=== PATIENT | male | born 1970 | race Caucasian/White ===

== ENCOUNTER 2022-06-29 14:51 | Outpatient (CLI) | payer OTHER, SELFPAY ==
--- NOTE | 2022-06-29 15:30 | MR_ITS ---
[address] [address] Phone:?[phone] Fax:?[phone] Referring Physician Information: Jame Ware D.P.M. [address] [facility] [address] Phone:?[phone] Fax:?[phone] Patient:Lenora Joseph D.O.B:?1970 Sex:?Male Phone:?[phone] [facility] MRN:?[id number] Exam Date:?06/29/2022 ? EXAM: MRI of the RIGHT FOOT, including forefoot and midfoot, without contrast CLINICAL INFORMATION: Male, 52 years old, with foot pain INDICATION: Narayanan's neuroma/swelling. PRIOR SURGERY: None reported. PLAIN FILMS: None available. COMPARISONS: No prior MRIs available. TECHNICAL INFORMATION: Using a 1.5T MR scanner and a localizing surface coil: sagittals: PD, T2 axials (long-axis): PD, T2, STIR coronals (short-axis): T1, STIR SEDATION: None CONTRAST: None FINDINGS: Osseous structures: Forefoot: No fracture, stress injury or marrow edema/pathology. Midfoot: No fracture, stress injury or marrow edema/pathology. Tarsal coalition: No calcaneonavicular or cubonavicular coalition. Joints: IP: No arthropathy or pathologic effusion. MTP: No arthropathy or pathologic effusion. TMT: No arthropathy or pathologic effusion. Tarsal: No arthropathy or pathologic effusion. Lisfranc joint ligamentous complex: Lisfranc ligament complex: Dorsal, interosseous and plantar ligaments are intact, without sprain or disruption. TMT/intermetatarsal ligaments: Intact without sprain/disruption. Myotendinous structures: Flexor tendons: Intact, without tendinopathy, tear, or tenosynovitis. Extensor tendons: Intact, without tendinopathy, tear, or tenosynovitis. Plantar aponeurosis: Normal, without ongoing fasciopathy, tear or mass, although its proximal aspect at calcaneus is not included. Intrinsic musculature: Normal in bulk and attenuation. Soft tissues: Region of intermediate signal soft tissue between the second and third metatarsal heads measuring 1.4 x 0.5 x 1.8 cm (coronal series 4 image 18, and axial series 7 image 15). Mild intermetatarsal bursitis between the third and fourth metatarsal heads (axial series 8 image 14). No soft tissue masses or ganglion cysts. Region of intermediate soft tissue along the plantar aspect of the fifth metatarsal head with peripheral STIR hyperintensity (coronal series 4 & 5 image 23) IMPRESSION: 1. Region of soft tissue between the second and third metatarsal heads suggestive for perineural fibrosis (Narayanan's neuroma). 2. No stress/occult fracture or other marrow edema/pathology. 3. Mild intermetatarsal bursitis between the third and fourth metatarsal heads. 4. Soft tissue pressure lesion with pseudobursa along the plantar 5th metatarsal head. KME Electronically signed on 06/30/2022 10:45:00 AM by Kamla Richardson M.D.
== END 2022-06-29 14:52 | disposition home or self-care (01) ==
LOC: MRI 14:51
PROVIDERS: PCP Internal Medicine; Visit Provider Podiatrist
DX: M79.671 Pain in right foot (principal); M77.51 Other enthesopathy of right foot and ankle; G57.61 Lesion of plantar nerve, right lower limb; M77.8 Other enthesopathies, not elsewhere classified
CPT/HCPCS: 73718

== ENCOUNTER 2022-09-05 08:43 | Day surgery (SDC) | payer OTHER, SELFPAY ==
[2022-09-05] MEDS: LACTATED RINGERS 1000 ML 1,000 ML 100 ML IV (09:00)
[2022-09-05 09:03] VITALS: BMI 37.3
[2022-09-05 09:12] VITALS: BP 147/90; PULSE 89; RESP 20; TEMP 36.9; O2SAT 95
[2022-09-05] MEDS: ETHYL CHLORIDE 1 APPLICATION 1 APPLIC TOPICAL (09:29)
[2022-09-05] MEDS: SODIUM CHLORIDE 0.9 % (FLUSH) 10 ML SYRINGE IVF (09:29)
[2022-09-05] MEDS: CEFAZOLIN 2 GM INJ IVP (10:23)
[2022-09-05] MEDS: BUPIVACAINE 0.5% 30 ML INJECTION (10:30)
[2022-09-05 11:30] VITALS: BP 133/95; PULSE 93; RESP 16; TEMP 36.7; O2SAT 99
--- NOTE | 2022-09-05 11:32 | W.ANESCHARGE ---
Anesthesia Charges Start Date/Time Anesthesia Start Date: 09/05/22 Anesthesia Start Time: 10:18 Stop Date/Time Anesthesia Stop Date: 09/05/22 Anesthesia Stop Time: 11:29 Summary Emergency: No
[2022-09-05 11:46] VITALS: BP 126/64; PULSE 89; RESP 20; TEMP 36.9; O2SAT 95
[2022-09-05 12:00] VITALS: BP 116/86; PULSE 85; RESP 20; O2SAT 96
--- NOTE | 2022-09-05 12:05 | W.ANESCHARGE ---
Anesthesia Charges Start Date/Time Anesthesia Start Date: 09/05/22 Anesthesia Start Time: 10:18 Stop Date/Time Anesthesia Stop Date: 09/05/22 Anesthesia Stop Time: 11:29 Summary Emergency: No
[2022-09-05 12:30] VITALS: BP 130/92; PULSE 86; RESP 20; TEMP 36.7; O2SAT 96
--- NOTE | 2022-09-05 16:13 | PM.GSPRC ---
Operative Note Date of procedure: 09/05/22 Type of Procedure: 1. Excision of neuroma 2nd intermetatarsal space right foot 2. Excision of Neuroma 3rd intermetatarsal space right foot Procedure Description: After discussing the risks and benefits of the procedure, the patient signed informed consent.? The operative site was marked and the patient was brought to the operating room and placed on the operating table in supine position.? Care was taken to pad the patient's pressure points.?? The patient was then given sedation by anesthesia.?? The operative site was then prepped and draped in the usual sterile fashion.? A time-out was then performed. The right leg was exsanguinated the ankle tourniquet inflated to 250 mm Hg. Linear incisions made over the 2nd intermetatarsal space right foot. Incision was carried down through skin subcutaneous tissues. Blunt dissection was carried down to the deep transverse metatarsal ligament. The this plantar, nerve was identified and was significantly abnormal and enlarged. The deep transverse metatarsal ligament was released. The distal medial and lateral arms of the nerve were transected and the nerve was dissected proximally into the intrinsic musculature. The nerve was then transected proximal to the metatarsal heads and within the intrinsic muscles. Second linear incisions made over the 3rd intermetatarsal space right foot. Incision was carried down through skin subcutaneous tissues. Blunt dissection was carried down to the deep transverse metatarsal ligament. The plantar nerve was identified and was also significantly abnormal enlarged. It was not amendable to decompression. The deep transverse metatarsal ligament was transected. The distal medial and lateral arms of the nerve were transected and the nerve was dissected proximally into the intrinsic musculature. The nerve was then transected proximal to the metatarsal heads and within the intrinsic muscles. The tourniquet was released and all bleeding vessels cauterized. Both incisions were irrigated fully with normal sterile saline. Subcutaneous tissues reapproximated with 4-0 Monocryl and skin closed with 4-0 Prolene. Sterile dressings were then applied. Tourniquet was released and normal capillary fill time returned to all digits. ? The patient was then woken and transported to the recovery area in stable condition. The patient tolerated the procedure well. Written and verbal postop instructions given. He is weight-bearing as tolerated. Is given hydrocodone for pain. His follow-up appointment in 2-3 days. Findings: Abnormal common plantar nerve in both the 2nd and 3rd intermetatarsal space. Complications: None apparent Anesthesia: MAC and local Surgeon: Jame Ware DPM Estimated blood loss (mL): 2 Condition: stable Disposition: same day
== END 2022-09-05 12:42 | disposition home or self-care (01) ==
PROVIDERS: PCP Internal Medicine; Visit Provider Podiatrist
PROC: (CPT 28080; principal; 2022-09-05 10:00)
DX: G57.61 Lesion of plantar nerve, right lower limb (principal)
CPT/HCPCS: 28080 ×2; 01480; 88305; 88342; J0690; J2250; J2704; J3010; J3490; J7120

== ENCOUNTER 2022-10-05 14:13 | Outpatient (CLI) | payer OTHER, SELFPAY | END 2022-10-05 14:14 | disposition home or self-care (01) | LOC: AMB 19:07 | PROVIDERS: PCP Internal Medicine; Visit Provider Emergency Medicine Emergency Medical Services | DX: I49.9 Cardiac arrhythmia, unspecified (principal); R42 Dizziness and giddiness; R20.0 Anesthesia of skin | CPT/HCPCS: A0425; A0427 ==

== ENCOUNTER 2022-10-05 14:51 | Emergency (ER) | payer OTHER, SELFPAY ==
[2022-10-05 14:55] VITALS: BP 116/78; PULSE 219; RESP 20; TEMP 35.8; O2SAT 95; BMI 36.3
[2022-10-05 15:01] VITALS: BP 116/78; PULSE 222; O2SAT 95
[2022-10-05 15:02] VITALS: PULSE 217; O2SAT 94
[2022-10-05] MEDS: ADENOSINE 6 MG/2ML INJ IVP (15:08)
[2022-10-05] MEDS: ADENOSINE 6 MG/2ML INJ 12 MG IVP (15:10)
--- NOTE | 2022-10-05 15:13 | ED.NURSE ---
pt received 6 mg adenosine with no results, 12 mg adenosine given and hr decreased to 120-130's. dr. zambrano in with pt. pt tolerated well, talking and texting during it.
[2022-10-05 15:15] VITALS: PULSE 129; O2SAT 92
[2022-10-05 15:16] VITALS: BP 134/96; PULSE 127; O2SAT 92
[2022-10-05] MEDS: 0.9 % SODIUM CHLORIDE 1000 ml 1,000 ML IV (15:20)
--- NOTE | 2022-10-05 15:25 | ED.ARRPALP ---
HPI - Arrhythmia/Palpitations General Chief Complaint: Arrhythmia/Palpitations Stated Complaint: Cardiac Time Seen by Provider: 10/05/22 14:54 History of Present Illness HPI narrative: This 52-year-old male comes in by ambulance because of a rapid heart rate. He states that this started an hour or 2 prior to arrival here. He was noted to have a heart rate at around 220 beats per minute by ambulance personnel. His blood pressure is in normal range. The patient states that he does not have any particular symptoms of nausea, vomiting, lightheadedness, shortness of breath, or chest pain. He states that he has had a rapid rhythm somewhat similar to this twice in the distant past. He does take metoprolol 100 mg extended release. Related Data Home Medications Medication Instructions Recorded Confirmed albuterol sulfate 90 mcg/actuation 2 inhalation PRN 04/13/22 08/31/22 aerosol inhaler aspirin 81 mg tablet,delayed 81 mg PO QDAY 04/13/22 10/05/22 release cholecalciferol (vitamin D3) 25 25 mcg PO QDAY 04/13/22 09/05/22 mcg (1,000 unit) capsule fluocinonide 0.05 % topical 1 topical .Daily as needed PRN 04/13/22 08/31/22 solution melatonin 3 mg capsule 3 mg PO .Bedtime as needed PRN 04/13/22 09/05/22 omega-3 fatty acids 500 mg capsule 500 mg PO QDAY 04/13/22 09/05/22 theanine 100 mg capsule 400 cap PO DAILY 04/13/22 09/05/22 Previous Rx's Medication Instructions Recorded gabapentin 100 mg capsule 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 PO BID PRN Oracio's Neuroma 04/13/22 #30 caps losartan 50 mg-hydrochlorothiazide 2 tab PO DAILY Hypertension #90 04/26/22 12.5 mg tablet tabs metoprolol succinate 100 mg 100 mg PO DAILY #90 tabs 04/27/22 tablet,extended release 24 hr lisdexamfetamine 40 mg capsule 40 mg PO QAM ADHD #30 caps 09/19/22 (Vyvanse) Allergies Allergy/AdvReac Type Severity Reaction Status Date / Time amlodipine Allergy Mild SWELLING Verified 08/31/22 15:13 latex Allergy Mild Rash Verified 08/31/22 15:13 lisinopril Allergy Mild Cough Verified 12/05/22 08:51 nifedipine Allergy Mild Swelling Verified 08/31/22 15:13 sesame oil Allergy Mild Vomiting Verified 08/31/22 15:13 Review of Systems Status of ROS: Reports: 10 or more systems reviewed and unremarkable except as noted in History and below Narrative: Constitutional: No fevers, no weight gain or loss. Eyes: No discharge. No vision changes. HENT: No congestion, no sore throat, no ear pain. Cardiovascular: No chest pain. Rapid heart rate. Respiratory: No shortness of breath, no wheezes, no cough. Gastrointestinal: No abdominal pain, no vomiting, no diarrhea. Genitourinary: No dysuria, no hematuria. Musculoskeletal: Normal range of motion. Skin: No rashes, no pruritis. Neurological: No dizziness, weakness, sensory change, speech change. Endo/Heme/Allergies: No bruising or bleeding. No polydipsia. Pysch: no suicidality, no anxiety, no insomnia. All other systems reviewed and are negative. [facility] Medical History (Updated 10/05/22 @ 17:25 by Cezar Mckeon MD) Hypertension Obstructive sleep apnea Social History Smoking Status: Never smoker Do you use any of these nicotine containing products: None How often do you have a drink containing alcohol: monthly or less AUDIT-C Alcohol total score: 1 Non-prescribed substance use: denies use Exam Narrative: Exam Narrative: Constitutional: Well-developed, well-nourished, no acute distress. HEENT: Normocephalic, atraumatic. Neck: Normal range of motion. Nontender. Supple. Heart: Regular. No murmurs. Tachycardia, rate around 220 beats per minute. Lungs: Clear to auscultation. No chest discomfort. No wheezes, rhonchi, or rales. Abdomen: Normal bowel sounds. Nontender. No rebound tenderness. Genitalia: Deferred. Back: No midline tenderness. Normal range of motion. Extremities: Normal range of motion. No injury. Skin: Intact. No rash. Warm. No erythema or pallor. Neurologic: No altered sensation. No weakness. Alert and oriented. Psychiatric: No suicidality. No anxiety or depression. No insomnia. Nursing notes and vitals signs are reviewed. Const: Vital Signs, click to edit/add: Vital Signs - 24 hr 10/05/22 14:55 10/05/22 15:01 10/05/22 15:02 Temperature 96.4 F L Pulse Rate 222 H 217 H Pulse Rate [Pulse Oximeter] 219 H Respiratory Rate 20 Blood Pressure 116/78 Blood Pressure [Le ft Upper Arm] 116/78 Pulse Oximetry 95 95 94 Oxygen Delivery Me thod Room Air 10/05/22 15:15 10/05/22 15:16 10/05/22 16:20 Temperature Pulse Rate 129 H 127 H Pulse Rate [Pulse Oximeter] 117 H Respiratory Rate 18 Blood Pressure 134/96 H Blood Pressure [Le ft Upper Arm] 128/83 Pulse Oximetry 92 92 93 Oxygen Delivery Me thod Room Air Course Vital Signs Vital signs: Initial Vital Signs Temperature 96.4 F L 10/05/22 14:55 Temperature Source Temporal Artery Scan 10/05/22 14:55 Pulse Rate 219 H 10/05/22 14:55 Respiratory Rate 20 10/05/22 14:55 Blood Pressure 116/78 10/05/22 14:55 Blood Pressure Mean 90 10/05/22 14:55 Blood Pressure Position Supine 10/05/22 14:55 Pulse Oximetry 95 10/05/22 14:55 Oxygen Delivery Method 10/05/22 14:55 Vital Signs Temperature 96.4 F L 10/05/22 14:55 Pulse Rate 219 H 10/05/22 14:55 Respiratory Rate 20 10/05/22 14:55 Blood Pressure 116/78 10/05/22 14:55 Pulse Oximetry 95 10/05/22 14:55 Oxygen Delivery Method 10/05/22 14:55 Temperature 96.4 F L 10/05/22 14:55 Pulse Rate 117 H 10/05/22 16:20 Respiratory Rate 18 10/05/22 16:20 Blood Pressure 128/83 10/05/22 16:20 Pulse Oximetry 93 10/05/22 16:20 Oxygen Delivery Method 10/05/22 16:20 MDM - Arrhythmia/Palpitations MDM Narrative Medical decision making narrative: This patient comes in with increased heart rate. EKG shows a rate at around 220 beats per minute. This is most likely related to a supraventricular tachycardia. He did attempt some maneuvers in the ambulance with no results. An IV was established here where he received 6 mg of adenosine but this did not show any change in his heart rate or rhythm. This was followed by 12 mg which did bring his rate down to around 130 beats per minute. Does appear to be a sinus tachycardia. He received a L of normal saline and lab results are ordered. He states that he did not take his metoprolol this morning so there may be some rebound effect from missing this medication. He did receive an oral dose of metoprolol 25 mg here and his heart rate at the time of discharge is at around 100 beats per minute. Lab results returned with reassuring findings. I advised him to resume his current plans. Lab Data Labs: Lab Results 10/05/22 10/05/22 10/05/22 Range/Units 15:15 15:47 15:47 WBC 7.71 (4.50-11.00) K/uL RBC 4.61 (4.30-5.90) m/uL Hgb 15.8 (13.5-17.5) gm/dL Hct 45.3 (37.0-53.0) % MCV 98 (80-100) fL MCH 34 (26-34) pg MCHC 35 (32-36) gm/dL RDW Coeff of Acosta 12.3 (11.5-15.5) % Plt Count 249 (140-440) K/uL Neut % (Auto) 62.1 (42.0-72.0) % Lymph % (Auto) 24.3 (20-44) % [place] % (Auto) 11.2 H (0.0-11.0) % Eos % (Auto) 1.8 (0.0-7.0) % Baso % (Auto) 0.5 (0.0-3.0) % Neut # (Auto) 4.79 (1.7-7.0) K/uL Lymph # (Auto) 1.87 (0.90-2.90) K/uL [place] # (Auto) 0.90 (0.00-0.90) K/UL Eos # (Auto) 0.14 (0.00-0.50) K/uL Baso # (Auto) 0.04 (0.00-0.30) K/uL Sodium 140 (135-149) mmol/L Potassium 2.9 L* (3.6-5.1) mmol/L Chloride 108 (96-114) mmol/L Carbon Dioxide 25 (20-32) mmol/L BUN 21 (7-30) mg/dL Creatinine 0.9 (0.5-1.5) mg/dL Estimated Creat Clear 110.97 Estimated GFR 104 ml/min Glucose 122 H (60-115) mg/dL Calcium 8.2 L (8.4-10.6) mg/dL Magnesium 1.9 (1.5-2.6) mg/dL POC Troponin I 0.01 (0.01-0.04) ng/ml ECG Data Attestation: I personally reviewed and interpreted this ECG as follows: Interpretation: Super ventricular tachycardia, rate 222 beats per minute. There are no specific ST or T-wave abnormalities. Repeat EKG after 12 mg of adenosine shows sinus tachycardia, rate 130 beats per minute. There are no specific ST or T-wave abnormalities. Discharge Plan Discharge Clinical Impression: Supraventricular tachycardia Patient Disposition: Home, Self-Care Condition: Improved Additional Instructions: Continue current plans. Follow up with MD. Return if worsening or recurrent symptoms happen. Prescriptions: No Action melatonin 3 mg capsule 3 mg PO .Bedtime as needed PRN fluocinonide 0.05 % solution 1 topical .Daily as needed PRN Rx Instructions: Apply to scalp daily as needed for rash and itch albuterol sulfate 90 mcg/actuation HFA aerosol inhaler 2 inhalation PRN cholecalciferol (vitamin D3) 25 mcg (1,000 unit) capsule 25 mcg PO QDAY omega-3 fatty acids 500 mg capsule 500 mg PO QDAY aspirin 81 mg tablet,delayed release (DR/EC) 81 mg PO QDAY theanine 100 mg capsule 400 cap PO DAILY gabapentin 100 mg capsule 100 mg PO BID PRN (Reason: Narayanan's Neuroma) Qty: 30 2RF losartan-hydrochlorothiazide 50-12.5 mg tablet 2 tab PO DAILY Qty: 90 3RF metoprolol succinate 100 mg tablet extended release 24 hr 100 mg PO DAILY Qty: 90 3RF Vyvanse 40 mg capsule 40 mg PO QAM Qty: 30 0RF Follow Up/Referrals: Kris Mcqueen MD [Primary Care Provider] - Stand Alone Forms: MyHealth Info Instructions
--- NOTE | 2022-10-05 15:31 | ED.NURSE ---
pt voided at bedside per urinal. HR remained 120's. pt tolerated well.
[2022-10-05] MEDS: METOPROLOL TARTRATE 25 MG TABLET PO (16:07)
[2022-10-05 16:08] LABS: Basophils Absolute Auto 0.04 K/uL (0.00-0.30); Basophils Percent Auto 0.5 % (0.0-3.0); Eosinophils Absolute Auto 0.14 K/uL (0.00-0.50); Eosinophils Percent Auto 1.8 % (0.0-7.0); Hematocrit 45.3 % (37.0-53.0); Hemoglobin* 15.8 gm/dL (13.5-17.5); Immature Granulocytes Abs Auto 0.01 K/uL (0.00-0.30); Immature Granulocytes Pct Auto 0.1 %; Lymphocytes Absolute Auto 1.87 K/uL (0.90-2.90); Lymphocytes Percent Auto 24.3 % (20-44); Mean Corpuscular HGB Conc 35 gm/dL (32-36); Mean Corpuscular Hemoglobin 34 pg (26-34); Mean Corpuscular Volume 98 fL (80-100); Monocytes Percent Auto 11.2 % (0.0-11.0); Neutrophils Absolute Auto 4.79 K/uL (1.7-7.0); Neutrophils Percent Auto 62.1 % (42.0-72.0); Platelet Count* 249 K/uL (140-440); RDW Coefficient of Variation % 12.3 % (11.5-15.5); Red Blood Count 4.61 m/uL (4.30-5.90); White Blood Count* 7.71 K/uL (4.50-11.00)
[2022-10-05 16:14] LABS: Slide Review Reflex No
[2022-10-05 16:20] VITALS: BP 128/83; PULSE 117; RESP 18; O2SAT 93
[2022-10-05 16:22] LABS: Chloride* 108 mmol/L (96-114); Sodium* 140 mmol/L (135-149)
[2022-10-05 16:22] LABS: Troponin, Point-of-Care* 0.01 ng/ml (0.01-0.04)
[2022-10-05 16:25] LABS: Blood Urea Nitrogen* 21 mg/dL (7-30); Carbon Dioxide* 25 mmol/L (20-32); Creatinine* 0.9 mg/dL (0.5-1.5); Est. Creatinine Clearance* 110.97; Estimated Glomerular Filt Rate 104 ml/min; Glucose* 122 mg/dL (60-115)
[2022-10-05 16:26] LABS: Calcium* 8.2 mg/dL (8.4-10.6); Magnesium* 1.9 mg/dL (1.5-2.6)
[2022-10-05 16:52] LABS: Potassium* 2.9 mmol/L (3.6-5.1)
--- NOTE | 2022-10-05 16:52 | ED.NURSE ---
Lab called with critical lab value of K 2.[address] Mckeon of result
[2022-10-05] MEDS: POTASSIUM CHLORIDE 10 MEQ CAPSULE ER 20 MEQ PO (17:42)
== END 2022-10-05 17:43 | disposition home or self-care (01) ==
PROVIDERS: Emergency Provider Emergency Medicine Emergency Medical Services; PCP Internal Medicine
DX: I47.1 Supraventricular tachycardia (principal)
CPT/HCPCS: 36415; 80048; 83735; 84443; 84484; 85025; 93005; 96361; 96374; 96376; 99284; 99285; A9270; J0153; J7030

== ENCOUNTER 2022-10-10 16:39 | Outpatient (CLI) | payer OTHER, SELFPAY ==
[2022-10-10 19:12] LABS: Chloride* 102 mmol/L (96-114); Potassium* 4.2 mmol/L (3.6-5.1); Sodium* 142 mmol/L (135-149)
[2022-10-10 19:16] LABS: Blood Urea Nitrogen* 19 mg/dL (7-30); Calcium* 9.8 mg/dL (8.4-10.6); Carbon Dioxide* 33 mmol/L (20-32); Creatinine* 0.8 mg/dL (0.5-1.5); Estimated Glomerular Filt Rate 108 ml/min; Glucose* 93 mg/dL (60-115)
== END 2022-10-10 16:40 | disposition home or self-care (01) ==
LOC: NFLDREF 16:40
PROVIDERS: PCP Internal Medicine; Visit Provider Internal Medicine
DX: I47.1 Supraventricular tachycardia (principal); I10 Essential (primary) hypertension
CPT/HCPCS: 80048

== ENCOUNTER 2023-01-13 09:13 | Outpatient (CLI) | payer OTHER, SELFPAY | END 2023-01-13 09:14 | disposition home or self-care (01) | LOC: OP CLINIC 09:13 | PROVIDERS: PCP Internal Medicine; Visit Provider Internal Medicine | DX: Z12.11 Encounter for screening for malignant neoplasm of colon (principal); K63.5 Polyp of colon | CPT/HCPCS: 45380; J2250; J3010 ==

== ENCOUNTER 2023-06-26 14:00 | Outpatient (CLI) | payer OTHER, SELFPAY ==
[2023-06-26] MEDS: PERFLUTREN LIPID MICROSPHERES 2 ML VIAL IV (15:54)
== END 2023-06-26 14:01 | disposition home or self-care (01) ==
PROVIDERS: PCP Internal Medicine; Visit Provider Internal Medicine Cardiovascular Disease
DX: I47.1 Supraventricular tachycardia (principal)
CPT/HCPCS: 93225; 93226; 93306; Q9957

== ENCOUNTER 2023-11-10 10:13 | Outpatient (CLI) | payer OTHER, SELFPAY | END 2023-11-10 10:14 | disposition home or self-care (01) | LOC: NFLDREF 11-13 07:49 | PROVIDERS: PCP Internal Medicine; Referring Provider Internal Medicine; Visit Provider Internal Medicine | DX: I10 Essential (primary) hypertension (principal); E87.6 Hypokalemia; Z12.5 Encounter for screening for malignant neoplasm of prostate; Z13.6 Encounter for screening for cardiovascular disorders | CPT/HCPCS: 80053; 80061; G0103 ==

== ENCOUNTER 2024-01-17 16:14 | Outpatient (CLI) | payer BC, SELFPAY | END 2024-01-17 16:15 | disposition home or self-care (01) | LOC: NFLDREF 16:15 | PROVIDERS: PCP Internal Medicine; Visit Provider Internal Medicine | DX: J45.909 Unspecified asthma, uncomplicated (principal) | CPT/HCPCS: 82103 ==

== ENCOUNTER 2025-06-23 22:04 | Emergency (ER) | payer BC, SELFPAY ==
--- OUTSIDE RECORDS SUMMARY | 2025-06-23 22:06 | XMS_ITS | Clinical Summary ---
Author Organization [facility] Address [address] [place] [id number] Care Team Providers Care Plisse Machine Operator Name Role Phone Kris Mcqueen MD Primary Care Provider Allergies Active Allergy Reactions Criticality Noted Date Comments Latex Rash 01/15/2015 Lisinopril Cough 01/15/2015 Amlodipine Edema 01/15/2015 Sesame Oil Nausea And Vomiting 01/15/2015 Medications losartan-hydroc hlorothiazide (HYZAAR) 100-25 mg tablet Take 1 tablet by mouth once daily. 0 01/15/2015 Active multivitamin (MVI) tablet Take 1 tablet by mouth once daily. 0 01/15/2015 Active cholecalciferol (VITAMIN D) 1,000 unit tablet Take 1 tablet by mouth once daily. 0 01/15/2015 Active fish oil-omega-3 fatty acids (FISH OIL) 1,200-360 mg cap Take 1 capsule by mouth 2 times daily. 0 01/15/2015 Active losartan-hydroc hlorothiazide (HYZAAR) 100-12.5 mg tablet Take 1 tablet by mouth once daily. 3 11/08/2018 Active metoprolol succinate (TOPROL XL) 50 mg sustained-relea se tablet Take 50 mg by mouth once daily. 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 Gender Identity Not on file Sexual Orientation Not on file Obstetrics History Last Filed Vital Signs Vital Sign Reading Time Taken Comments Blood Pressure 147/97 08/17/2022 2:36 PM CONCRETE CRUSHER LOADER OPERATOR Pulse 93 09/21/2022 1:24 PM CONCRETE CRUSHER LOADER OPERATOR Temperature 36.8 C (98.3 F) 09/21/2022 1:24 PM CONCRETE CRUSHER LOADER OPERATOR Respiratory Rate - - Oxygen Saturation 97% 09/21/2022 1:24 PM CONCRETE CRUSHER LOADER OPERATOR Inhaled Oxygen Concentration - - Weight 128.4 kg (283 lb) 08/17/2022 2:36 PM CONCRETE CRUSHER LOADER OPERATOR Height 183.5 cm (6' 0.24) 01/15/2015 2:18 PM CD T Body Mass Index 38.12 01/15/2015 2:18 PM CDT Plan of Treatment Health Maintenance Due Date Last Done Comments Tetanus booster 1983 Depression screening for age 12+ 1984 HIV for age 15-65 1987 BMI (ht and wt on same day) for age 18+ 1990 Hepatitis C screening for age 18-79 1990 Hepatitis B series for 19+ ( 1 of 3 - 19+ 3-dose series) 1991 Colonoscopy through age 75 2017 Lipids for age 45-75 2017 Pneumococcal series for age 50+ (1 of 1 - PCV) 2022 Zoster (shingles) series for age 50+ (1 of 2) 2022 COVID-19 vaccine series (3 - 2024- season) 2025 01/16/2021, 12/26/2020 Influenza Vaccine (#1) 2025 RSV vaccine for adults or pr egnancy (1 - 1-dose 75+ series) 2047 Insurance [employer] Care Teams Plisse Machine Operator Relationship Specialty Start Date End Date Kris Mcqueen MD PCP - General 05/20/09
--- OUTSIDE RECORDS SUMMARY | 2025-06-23 22:07 | XMS_ITS | Clinical Summary ---
Author Organization [facility] Address [address] [place] [address] Care Team Providers Care Edge Blacker Name Role Phone Kris Mcqueen MD Primary Care Provider [phone] Source Comments You are receiving this document as you are listed as the primary care provider,follow-up provider, or the patient has been referred to you for consultation.This is in compliance with the Medicare andMedicaid EHR Incentive Program,which states Providers who transition their patient to another setting of careor provider of care or refers their patient to another provider of care shouldprovide summary care record for each transition of care or referral. [facility] Allergies Active Allergy Reactions Criticality Noted Date Comments Latex Rash 04/01/2022 Lisinopril Cough 04/01/2022 Nifedipine Edema,generalized High 01/05/2022 Amlodipine Other, see comments 04/01/2022 Feet swelling Medications losartan-hydroc hlorothiazide (HYZAAR) 50-12.5 MG tablet Take 2 Tablets by mouth daily. 02/19/2022 Active metoprolol succinate (TOPROL XL) 100 MG 24 hour release tablet Take 100 mg by mouth daily. 02/19/2022 Active aspirin EC 81 MG enteric coated tablet Take 81 mg by mouth daily. Active omega-3 fatty acids (AKA MAXEPA,FISH OIL) 1000 MG capsule Take 1,000 mg by mouth daily. 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 Snoring 04/01/2022 Autism spectrum disorder 10/16/2012 Benign hypertension 10/16/2012 H/O hernia repair 10/16/2012 Psoriasis 10/16/2012 Cough variant asthma 09/05/2011 Attention deficit hyperactivity disorder 009 Immunizations Immunization Administration Dates Next Due Influenza IIV4 (Quadrivalent ) 0.5mL (39981) 08/08/2019,07/12/2018,10/25/2017,2015,07/29/2014,10/21/2013,10/16/2012,1 ,07/22/2008 Pfizer Monovalent 12+ Purple Top 01/16/2021,12/01 Tdap 04/28/2008 Family History Medical History Relation Name Comments Psoriasis Mother Relation Name Status Comments Mother Social History Tobacco Use Types Packs/Day Years Used Date Smoking Tobacco: Never Smokeless Tobacco: Never Alcohol Use Standard Drinks/Week Comments Yes 0 (1 standard drink = 0.6 oz pure alcohol) Very rare 3-4 drinks total per year Sex and Gender Information Value Date Recorded Sex Assigned at Not on file Legal Sex Male 4:48 AM CDT Gender Identity Not on file Sexual Orientation Not on file Plan of Treatment Health Maintenance Due Date Last Done Comments Colon Cancer Screening Plan Due 1970 Hep C Screening (Preventive Services) 1970 PSA Screening Discussion 1970 HIV Screening (Preventive Services) 1988 Adult Preventive Visit 1990 HepB Vaccine (1) 1991 Pneumococcal Vaccine 50+ Yrs (1 of 2 - PCV) 1991 Cholesterol 2007 DTaP/Tdap/Td Vaccine (2 - Tdap) 04/28/2018 04/28/2008 Zoster/Shingles Vaccine (1 of 2) 2022 COVID-19 Vaccine (3 - season) 2025 01/16/2021, 12/26/2020 Influenza Vaccine (#1) 2025 9, 07/12/2018, 10/25/2017, Additional history exists HepA Vaccine Aged Out No longer eligi ble based on patient's age to complete this topic Hib Vaccine Aged Out No longer eligi ble based on patient's age to complete this topic IPV (Polio) Vaccine Aged Out No longe r eligible based on patient's age to complete this topic MCV4 Vaccine Aged Out No longer eligi ble based on patient's age to complete this topic Meningococcal B Vaccine Aged Out No l onger eligible based on patient's age to complete this topic Care Teams Edge Blacker Relationship Specialty Start Date End Date Kris Mcqueen MD [address] [place] [address] PCP - General 04/05/22
[2025-06-23 22:12] VITALS: BP 105/69; PULSE 117; RESP 18; TEMP 36.6; O2SAT 97; BMI 35.3
[2025-06-23 22:37] VITALS: O2SAT 97
--- NOTE | 2025-06-23 22:37 | ED.ARRPALP ---
HPI - Arrhythmia/Palpitations General Chief Complaint: Arrhythmia/Palpitations Stated Complaint: tachycardia Time Seen by Provider: 06/23/25 22:06 History of Present Illness HPI narrative: This 55-year-old male comes in reporting tachycardia that he believes was supraventricular tachycardia. He does have a monitor at home that he places his fingers on and this does record the pace at least. He shows me a rhythm and rate at around 200 beats per minute. He arrives here feeling better however he states he did not really have any associated symptoms except for little bit of lightheadedness. He does not report any pain. He arrives here heart rate at around 105 beats per minute. He states that he has had episodes of this rapid heart rate happening numerous times over the past and he has been to a computer help desk representative. He has worn a heart monitor for upwards of a month without any evidence of dysrhythmia during it. He states that he is taking metoprolol and at combination KENYETTA-inhibitor hydrochlorothiazide medicine also. Related Data Home Medications ?Medication ?Instructions ?Recorded ?Confirmed cholecalciferol (vitamin D3) 25 25 mcg PO QDAY 04/13/22 03/20/25 mcg (1,000 unit) capsule melatonin 3 mg capsule 3 mg PO .Bedtime as needed PRN 04/13/22 03/20/25 omega-3 fatty acids 500 mg capsule 500 mg PO QDAY 04/13/22 03/20/25 theanine 100 mg capsule 400 cap PO DAILY 04/13/22 03/20/25 Previous Rx's ?Medication ?Instructions ?Recorded metoprolol succinate 100 mg 100 mg PO DAILY #90 tabs 10/19/24 tablet,extended release 24 hr potassium chloride 10 mEq 10 meq PO DAILY Hypokalemia #90 10/19/24 capsule,extended release caps albuterol sulfate 90 mcg/actuation 2 puff inhalation Q6H PRN 10/24/24 aerosol inhaler shortness of breath or wheezing #8.5 grams losartan 50 mg-hydrochlorothiazide 2 tab PO DAILY Hypertension #180 12/17/24 12.5 mg tablet tabs triamcinolone acetonide 0.1 % 1 applic topical QDAY #15 grams 02/13/25 topical cream lisdexamfetamine 40 mg capsule 40 mg PO QAM ADHD #30 caps 06/16/25 (Vyvanse) Allergies Allergy/AdvReac Type Severity Reaction Status Date / Time amlodipine Allergy Mild SWELLING Verified 03/20/25 10:19 latex Allergy Mild Rash Verified 03/20/25 10:19 lisinopril Allergy Mild Cough Verified 03/20/25 10:19 nifedipine Allergy Mild Swelling Verified 03/20/25 10:19 sesame oil Allergy Mild Vomiting Verified 03/20/25 10:19 Review of Systems Status of ROS: Reports: 10 or more systems reviewed and unremarkable except as noted in History and below Narrative: Constitutional: No fevers, no weight gain or loss. Eyes: No discharge. No vision changes. HENT: No congestion, no sore throat, no ear pain. Cardiovascular: No chest pain, no palpitations. Respiratory: No shortness of breath, no wheezes, no cough. Gastrointestinal: No abdominal pain, no vomiting, no diarrhea. Genitourinary: No dysuria, no hematuria. Musculoskeletal: Normal range of motion. Skin: No rashes, no pruritis. Neurological: No dizziness, weakness, sensory change, speech change. Endo/Heme/Allergies: No bruising or bleeding. No polydipsia. Pysch: no suicidality, no anxiety, no insomnia. All other systems reviewed and are negative. [facility] Medical History (Updated 06/23/25 @ 22:43 by Cezar Mckeon MD) Otitis externa ?H60.90 - Unspecified otitis externa, unspecified ear (ICD-10) History of atrial fibrillation (2008) ?Z86.79 - Personal history of other diseases of the circulatory system (ICD-10) Anxiety ?F41.9 - Anxiety disorder, unspecified (ICD-10) Asthma ?J45.909 - Unspecified asthma, uncomplicated (ICD-10) Obstructive sleep apnea ?G47.33 - Obstructive sleep apnea (adult) (pediatric) (ICD-10) Hypertension ?I10 - Essential (primary) hypertension (ICD-10) Surgical History History of hernia repair (10/16/12) ?Z98.890 - Other specified postprocedural states (ICD-10) ?Z87.19 - Personal history of other diseases of the digestive system (ICD-10) Social History (Updated 01/01/25 @ 16:05 by Ruthann Swan ~ [facility]) What is your current living situation?: I presently have a place to live Problems where you live: water leaks In the past 12 months, utilities in danger of being shut off: no In past 12 months, lack of transportation kept you from medical appts, meetings, work, or getting things needed for daily living: no In the past 12 mos, have been you worried that your food would run out before you had money to buy more?: never true In the past 12 mos, the food you bought just didn't last and you didn't have money to buy more?: never true Smoking Status: Never smoker Do you use any of these nicotine containing products: None How often do you have a drink containing alcohol: monthly or less AUDIT-C Alcohol total score: 1 Non-prescribed substance use: denies use How often does anyone, including family, friends and others, physically hurt you: never How often does anyone, including family, friends and others, insult or talk down to you: never How often does anyone, including family, friends and others, threaten you with harm: never How often does anyone, including family, friends and others, scream or curse at you: never Health Related Social Needs: Inadequate housing (Z59.1) Exam Narrative: Exam Narrative: Constitutional: Well-developed, well-nourished, no acute distress. HEENT: Normocephalic, atraumatic. Neck: Normal range of motion. Nontender. Supple. Heart: Regular. No murmurs. Borderline tachycardia. Intact distal pulses. Lungs: Clear to auscultation. No chest discomfort. No wheezes, rhonchi, or rales. Abdomen: Normal bowel sounds. Nontender. No rebound tenderness. Genitalia: Deferred. Back: No midline tenderness. Normal range of motion. Extremities: Normal range of motion. No injury. Skin: Intact. No rash. Warm. No erythema or pallor. Neurologic: No altered sensation. No weakness. Alert and oriented. Psychiatric: No suicidality. No anxiety or depression. No insomnia. Nursing notes and vitals signs are reviewed. Const: Vital Signs, click to edit/add: Vital Signs - 24 hr 06/23/25 22:12 Temperature 97.8 F Pulse Rate [Pulse Oximeter] 117 H Respiratory Rate 18 Blood Pressure [Ri ght Upper Arm] 105/69 Pulse Oximetry 97 Oxygen Delivery Me thod Room Air Course Vital Signs Vital signs: Initial Vital Signs Temperature 97.8 F 06/23/25 22:12 Temperature Source Temporal Artery Scan 06/23/25 22:12 Pulse Rate 117 H 06/23/25 22:12 Pulse Rhythm Regular 06/23/25 22:12 Respiratory Rate 18 06/23/25 22:12 Respiratory Effort Normal, Spontaneous, Non-Labored 06/23/25 22:12 Respiratory Depth Normal 06/23/25 22:12 Respiratory Pattern Normal 06/23/25 22:12 Blood Pressure 105/69 06/23/25 22:12 Blood Pressure Mean 81 06/23/25 22:12 Blood Pressure Position Sitting 06/23/25 22:12 Pulse Oximetry 97 06/23/25 22:12 Oxygen Delivery Method Room Air 06/23/25 22:12 Vital Signs Temperature 97.8 F 06/23/25 22:12 Pulse Rate 117 H 06/23/25 22:12 Respiratory Rate 18 06/23/25 22:12 Blood Pressure 105/69 06/23/25 22:12 Pulse Oximetry 97 06/23/25 22:12 Oxygen Delivery Method Room Air 06/23/25 22:12 Temperature 97.8 F 06/23/25 22:12 Pulse Rate 117 H 06/23/25 22:12 Respiratory Rate 18 06/23/25 22:12 Blood Pressure 105/69 06/23/25 22:12 Pulse Oximetry 97 06/23/25 22:12 Oxygen Delivery Method Room Air 06/23/25 22:12 MDM - Arrhythmia/Palpitations MDM Narrative Medical decision making narrative: This patient comes in because of a rapid heart rate that has now resolved almost back to normal. He has had symptoms like this in the past in yet has not been able to capture it on a EKG or heart monitor. During his visit here he did not have any significant rapid heart rate. His heart rate did stay around 100-110 beats per minute. He states that he may have for gotten or missed his beta-mookie medication which could account for some of this. I did discuss lab and imaging options with the patient to declined these for now stating that he has had numerous workups with reassuring results. ECG Data Attestation: I personally reviewed and interpreted this ECG as follows: Interpretation: Sinus tachycardia, rate 108 beats per minute. There are no specific ST or T-wave abnormalities. Discharge Plan Discharge Clinical Impression: Supraventricular tachycardia Patient Disposition: Home, Self-Care Condition: Improved Additional Instructions: Continue current plans and medications. Follow up with MD as needed or return if symptoms are recurrent. Prescriptions: No Action melatonin 3 mg capsule 3 mg PO .Bedtime as needed PRN cholecalciferol (vitamin D3) 25 mcg (1,000 unit) capsule 25 mcg PO QDAY omega-3 fatty acids 500 mg capsule 500 mg PO QDAY theanine 100 mg capsule 400 cap PO DAILY triamcinolone acetonide 0.1 % cream 1 applic topical QDAY Qty: 15 1RF potassium chloride 10 mEq capsule, extended release 10 meq PO DAILY Qty: 90 2RF metoprolol succinate 100 mg tablet extended release 24 hr 100 mg PO DAILY Qty: 90 2RF albuterol sulfate 90 mcg/actuation HFA aerosol inhaler 2 puff inhalation Q6H PRN (Reason: shortness of breath or wheezing) Qty: 8.5 3RF losartan-hydrochlorothiazide 50-12.5 mg tablet 2 tab PO DAILY Qty: 180 2RF Vyvanse 40 mg capsule 40 mg PO QAM Qty: 30 0RF Follow Up/Referrals: Kris Mcqueen MD [Primary Care Provider, Internal Medicine] Stand Alone Forms: [employer] Info Instructions
[2025-06-23 22:43] VITALS: BP 110/71; PULSE 100; RESP 18; TEMP 36.6; O2SAT 97
[2025-06-23 22:52] VITALS: BP 110/71; PULSE 100; RESP 18; TEMP 36.6
== END 2025-06-23 22:58 | disposition home or self-care (01) ==
PROVIDERS: Emergency Provider Emergency Medicine Emergency Medical Services; PCP Internal Medicine
DX: I47.10 Supraventricular tachycardia, unspecified (principal)
CPT/HCPCS: 93005; 94761; 99284